=== PATIENT | female | born 1990 | race Caucasian/White ===

== ENCOUNTER → 2016-03-25 | Outpatient (CLI) | payer OTHER ==
[~2016-03-25] MED LIST: SULF800T23 PO
[2016-03-25 14:42] LABS: BASO % 0.6 %; BASO ABS # 0.03 K/uL (0-0.2); COMPLETE YES; EOS % 0.8 %; HEMATOCRIT 37.2 % (37-47); IG% 0.2 %; LYMPH % 36.1 %; LYMPH ABS # 1.88 K/uL (1.2-3.4); MEAN CELL VOLUME 86.7 fL (80-100); MEAN CORPUSCULAR HEMOGLOBIN 28.7 pg (25-34); MEAN CORPUSCULAR HGB CONC 33.1 g/dl (32-36); MEAN PLATELET VOLUME 10.4 fL (7.4-10.4); MONO % 7.3 %; PLATELET COUNT 276 K/uL (130-400); RED BLOOD COUNT 4.29 M/uL (4.2-5.4); WHITE BLOOD COUNT 5.21 K/uL (4.8-10.8)
[2016-03-25 14:53] LABS: INR 1.1 (0.9-1.1); PROTHROMBIN TIME (PATIENT) 11.3 SECONDS (9.0-12.0)
[2016-03-25 15:02] LABS: POTASSIUM 3.7 mmol/L (3.5-5.1)
== END | disposition home or self-care (01) ==
LOC: C.LAB 14:21
DX: Z01.818 Encounter for other preprocedural examination (principal)

== ENCOUNTER → 2016-03-30 | Day surgery (SDC) | payer OTHER ==
[2016-03-23 11:44] VITALS: Ht 154.9 cm; Wt 52.3 kg
[~2016-03-30] VITALS: Ht 154.9 cm; Wt 52.3 kg
[~2016-03-30] MED LIST changes: +ATROPINE SULFATE 0.1 MG/ML 5ML SYR IV PRN; +BACITRACIN/POLYMYXIN B OINT 15 GM TUBE EXT ONE; +DEXAMETHASONE SOD INJ 4 MG/ML VIAL ONE; +EpHEDrine SULFATE INJ 50 MG/ML AMP IV PRN; +FENTANYL CITRATE INJ 50 MCG/1 ML 2 ML VIAL IV PRN; +FENTANYL CITRATE INJ 50 MCG/1 ML 2 ML VIAL ONE; +HYDROmorphone INJ 1 MG/ML SYR IV PRN; +LABETALOL HCL IV 5 MG/ML 20ML IV PRN; +LACTATED RINGER'S 1000ML 1,000 ML IV SCH; +LIDOCAINE 2% JELLY 5 ML TUBE EXT ONE; +LIDOCAINE HCL 2% 2 ML VIAL (20MG/ML) ONE; +MEPERIDINE HCL 25 MG/ML CARP IV PRN; +NALOXONE HCL 0.4 MG/1 ML VIAL/CARP ONE; +ONDANSETRON INJ 2 MG/ML 2 ML VIAL IV PRN; +ONDANSETRON INJ 2 MG/ML 2 ML VIAL ONE; +OXYCODONE HCL SOLN 5 MG/5 ML UDC PO PRN; +OXYMETAZOLINE HCL 0.05% NA SPR 15 ML BTL ONE; +PROPOFOL IV EMULSION 10 MG/ML 20 ML VIAL IV ONE; +SUCCINYLCHOLINE CHLORIDE 20 MG/ML 10 ML VIAL IV ONE
--- NOTE | 2016-03-30 07:55 | History & Physical Bridge - [place] ---
H&P Re-Evaluation Bridge Note: I have examined the patient, reviewed the History & Physical and in the interval since the performance of the History & Physical I have noted the following changes of clinical significance: No changes noted
--- NOTE | 2016-03-30 08:46 | [facility] Operative Report ---
Operative Report Operative Date Mar 30, 2016. Pre-Operative Diagnosis Chronic Tonsillitis Post-Operative Diagnosis Same Procedure(s) Performed Tonsillectomy Surgeon Dr. Meir Dhillon [employer] Member Surgeon(s) None Estimated Blood Loss 0 cc Findings 1. 1+ CRYPTIC ENDOPHYTIC TONSILS Specimens A. Right Tonsil B. Left Tonsil I attest to the content of the Intraoperative Record and any orders documented therein. Any exceptions are noted below.
--- NOTE | 2016-03-30 08:48 | Discharge Instructions ---
Discharge Instructions Admission Reason for Admission: Chronic Tonsillitis Discharge Discharge Diagnosis / Problem: SAME Discharge Goals Goal(s): Improve function Activity Recommendations Activity Limitations: as noted below LIGHT ACTIVITY FOR 2WEEKS; SOFT DIET FOR 2WEEKS; NO DRIVING WHILE ON OXYCODONE . Current Hospital Diet Patient's current hospital diet: Full Liquid Diet Discharge Diet Recommended Diet: Full Liquid Diet Diet Texture: Mechanical Soft (ground) Procedures Procedures Performed: Tonsillectomy Pending Studies Studies pending at discharge: no Medical Emergencies . Who to Call and When: Medical Emergencies: If at any time you feel your situation is an emergency, please call 911 immediately. . Non-Emergent Contact Non-Emergency issues call your: Surgeon . . "Provider Documentation" section prepared by Murtaza Dhillon. VTE Core Measure Inpt VTE Proph given/why not?: SCD's
--- NOTE | 2016-03-30 09:11 | OPERATIVE REPORT ---
DATE OF OPERATION: 03/30/2016 PREOPERATIVE DIAGNOSIS: Chronic tonsillitis. POSTOPERATIVE DIAGNOSIS: Chronic tonsillitis. PROCEDURE: Bilateral tonsillectomy. SURGEON: Dr. Dhillon. ANESTHESIA: General endotracheal. ESTIMATED BLOOD LOSS: Zero. FINDINGS: 1+ cryptic endophytic tonsils bilaterally. SPECIMENS: Right and left tonsils sent separately for permanent pathological assessment. COMPLICATIONS: None. INDICATIONS FOR THE PROCEDURE: The patient is a 26-year-old female with the above-mentioned history, who presents for the above-mentioned procedure on an outpatient elective basis. DETAILS OF PROCEDURE: After informed consent had been obtained from the patient, the patient was wheeled to the operating room and placed on the operating room table in supine position. Monitors were placed. After induction of general endotracheal anesthesia, the table was turned 90 degrees, and the patient's head and neck were gently extended. Antibiotic ointment was applied to lips and a mouth gag was carefully inserted, opened, and stabilized on a roll of towels. The palate was inspected, this was found to be normal. A catheter was then inserted through the right nasal cavity and this was used to elevate the soft palate and uvula. A laryngeal mirror was used to inspect the nasopharynx and intraoperative findings were of no evidence of adenoid tissue. The catheter was then removed. An Allis clamp was then used to grasp the right tonsil in the superior pole. Bovie electrocautery was used to remove the tonsil in the capsular plane with care to preserve the underlying mucosa and musculature of the anterior and posterior tonsillar pillars. Left tonsil was then removed in a similar fashion. Intraoperative findings were of 1+ cryptic endophytic tonsils bilaterally. These were sent off for permanent pathological specimen separately. The oral cavity and oropharynx were then irrigated and suctioned. An orogastric tube was placed and the stomach was suctioned free of air and stomach contents. The mouth gag was released for 1 minute. This was reopened and hemostasis was confirmed. 2% lidocaine jelly was placed in the bilateral tonsillar fossae for added anesthetic effect. This henao the end of the case. The patient tolerated the procedure well and there were no apparent complications. The patient was extubated and transferred to recovery room in stable condition. I attest to the content of the Intraoperative Record and any orders documented therein. Any exceptio ns are noted below.
[2016-03-30 09:42] VITALS: TEMP 37.4
--- NOTE | 2016-03-30 10:08 | Anesthesia Progress Nt - [facility] ---
Anesthesia Post Op Note Date & Time Mar 30, 2016 at 10:07 Vital Signs Pain Intensity: 3.0 Vital Signs Past 12 Hours Date Time Temp Pulse Resp B/P Pulse Ox O2 Delivery O2 Flow Rate FiO2 03/30/16 09:42 37.4 72 113/66 99 Room Air 03/30/16 09:34 74 20 03/30/16 09:34 74 20 98 03/30/16 09:33 113/68 03/30/16 09:32 37.4 69 14 113/68 99 Room Air 03/30/16 09:29 73 18 98 03/30/16 09:29 73 18 03/30/16 09:28 112/64 03/30/16 09:24 77 16 03/30/16 09:24 75 16 100 03/30/16 09:23 112/69 03/30/16 09:19 78 18 03/30/16 09:19 80 18 98 03/30/16 09:18 117/65 03/30/16 09:14 79 17 03/30/16 09:14 80 17 99 03/30/16 09:13 119/66 03/30/16 09:09 76 17 03/30/16 09:09 77 17 100 03/30/16 09:08 122/68 03/30/16 09:04 36.7 93 12 125/51 100 Humidified Oxygen 6 Diffusion Mask 03/30/16 09:04 79 14 03/30/16 09:04 80 14 100 03/30/16 07:06 36.7 77 20 113/66 100 Room Air Notes Mental Status: alert / awake / arousable, participated in evaluation Pt Amnestic to Procedure: Yes Nausea / Vomiting: adequately controlled Pain: adequately controlled Airway Patency, RR, SpO2: stable & adequate BP & HR: stable & adequate Hydration State: stable & adequate Anesthetic Complications: no major complications apparent
[2016-03-30 10:13] VITALS: BP 116/64; PULSE 73; O2SAT 99
== END | disposition home or self-care (01) ==
LOC: X.SURG 06:55
DX: J03.90 Acute tonsillitis, unspecified (principal); J35.01 Chronic tonsillitis; Z83.49 Family history of other endocrine, nutritional and metabolic diseases; Z82.49 Family history of ischemic heart disease and other diseases of the circulatory system; Z83.3 Family history of diabetes mellitus

== ENCOUNTER 2016-11-17 00:17 | Emergency (ER) | payer OTHER ==
[~2016-11-17] VITALS: Ht 154.9 cm; Wt 55.2 kg
[2016-11-17 00:26] VITALS: BP 139/75; PULSE 77; TEMP 36.9; O2SAT 100; Ht 154.9 cm; Wt 55.2 kg
[2016-11-17] MEDS ORDERED: SULF800T23 PO (00:42)
[2016-11-17] MEDS: SEPTRA DS HOME PACK 1 EA VIAL PO ONE (00:45)
--- NOTE | 2016-11-17 23:57 | EMERGENCY ROOM VISIT NOTE ---
History First contact with patient: 00:29 Chief Complaint: WOUND INFECTION Stated Complaint: LEFT EAR PIERCING SWOLLEN, REDDISH, CHILLS Nursing Triage Summary: Pt reports she got her ears pierced 7 months ago tonight she noticed left ear was red and swollen History of Present Illness The patient is a 26 year old female who presents to the Emergency Room with complaints of pain and swelling of her left earlobe over the past one day. The patient wears a piercing in this year, and states that she had the piercing done 7 months ago. She usually cleans her earrings weekly, and a few days ago she noticed some blood and purulent drainage. She did replace the earring into the ear, and now has increased redness and swelling. She has not had fever or chills. She considers herself usually healthy and rates her discomfort a 5/10. Review of Systems More than 6 systems were reviewed and otherwise negative with the exception of history of present illness. Past Medical/Surgical History No chronic medical disease Family History No pertinent family history Social History Smoking Status: Never Smoker Housing Status: lives with family Current/Historical Medications Scheduled Sulfa/Trimethoprim (Bactrim Ds 800MG/160MG), 1 TAB PO BID Physical Exam Vital Signs Date Time Temp Pulse Resp B/P (MAP) Pulse Ox O2 Delivery O2 Flow Rate FiO2 11/17/16 00:26 36.9 77 18 139/75 100 Room Air Physical Exam VITALS: Vitals are noted on the nurse's note and reviewed by myself. Vital signs stable. GENERAL: Well-developed, well-nourished, white female, who is in no acute distress and resting comfortably. Patient is cooperative with the examination. EARS: External ear lobe is erythematous and edematous. Hearing is in place but was removed by the patient. There is scant purulent drainage appreciated from the posterior aspect of the piercing hole. HEART: Regular rate and rhythm without murmurs gallops or rubs. LUNGS: Clear to auscultation bilaterally without wheezes, rales or rhonchi. No retractions or accessory muscle use. Medical Decision & Procedures Medications Administered Medications (Trade) Dose Ordered Sig/Yulissa Route Start Time Stop Time Status Last Admin Dose Admin Trimethoprim/ Sulfamethoxazole (Sulfameth/ Trimeth Ds 800/ 160MG Home Pack) 1 homepack UD ONCE PO 11/17/16 00:45 11/17/16 00:46 DC 11/17/16 00:45 1 [facility] ED Course Physical exam and history were performed. Nursing notes, EMR, and Medication List were personally reviewed. Patient appears to have a slowly worsening infection of her left earlobe. I will have the patient remove the earring as this seems to be worsening her symptoms. She will be started on a short course of Bactrim. She is to follow with her primary care physician with any ongoing or persistent symptoms. The chart was completed utilizing [employer] Speech Voice Recognition Software. Grammatical errors, random word insertions, pronoun errors, and incomplete sentences are an occasional consequence of this system due to software limitations, ambient noise, and hardware issues. Any formal questions or concerns about the content, text, or information contained within the body of this dictation should be directly addressed to the provider for clarification. . Medical Decision Differential diagnosis: Etiologies such as cellulitis, abscess, MRSA infection, DVT, necrotizing fasciitis, dermatitis, drug eruption, as well as others were entertained.. Impression Primary Impression: Infection of left earlobe Departure Information Dispostion Home / Self-Care Condition GOOD Prescriptions Sulfa/Trimethoprim (Bactrim Ds 800MG/160MG) Tab 1 TAB PO BID for 7 Days, #14 TAB Prov: Gab Mcbride PA-C 11/17/16 Forms WORK / SCHOOL INSTRUCTIONS, HOME CARE DOCUMENTATION FORM, IMPORTANT VISIT INFORMATION Patient Instructions My [facility] Additional Instructions You were seen and evaluated today on an emergency basis only. This is not a substitute for, or an effort to provide, complete comprehensive medical care. It is not possible to recognize and treat all injuries or illnesses in a single emergency department visit. For this reason it is recommended that you followup with your primary care physician with any ongoing or persistent symptoms. Trimethoprim-Sulfamethoxazole(Bactrim DS): Take one pill twice daily for 7 days for your skin infection. All antibiotics can cause diarrhea. If this occurs and you feel worse or it does not resolve in 1-2 days follow up with your doctor or return to the Emergency Department as this could be signs of serious underlying problems. Any medication can cause an allergic reaction, stop the pills immediately and return to the ER for rash, hives, breathing difficulties, or swelling. You are welcome to return to the emergency department anytime with new, worsening, or concerning symptoms.
== END 2016-11-17 01:02 | disposition home or self-care (01) ==
LOC: C.EDB 00:19 → C.EDC 01:02
DX: L08.9 Local infection of the skin and subcutaneous tissue, unspecified (principal)

== ENCOUNTER → 2017-06-12 | Outpatient (CLI) | payer OTHER | END | disposition home or self-care (01) | LOC: C.PAPS 11:28 | PROVIDERS: ATTEND Physician Assistant | DX: Z12.4 Encounter for screening for malignant neoplasm of cervix (principal) ==